=== PATIENT | male | born 1950 | race Caucasian/White ===

== ENCOUNTER 2015-12-27 07:24 | Outpatient (RCR) | payer MEDICARE, OTHER ==
[2015-12-27 11:24] LABS: MEAN CORPUSCULAR HEMOGLOBIN 31.3 PG (26.0-34.0); MEAN CORPUSCULAR HGB CONC 34.6 g/dL (31.0-37.0); MEAN CORPUSCULAR VOLUME 91 FL (80-100); MEAN PLATELET VOLUME 9.2 FL (6.0-9.5); PLATELET COUNT 247 10^3uL (150-450); WHITE BLOOD COUNT 4.79 10^3uL (4.0-11.0)
[2015-12-27 11:44] LABS: BAND NEUTROPHILS % 0 % (0-6); EOSINOPHILS % 4 % (0-4); LYMPHOCYTES # 1.2 #; MONOCYTES # 0.5 #; MONOCYTES % 13 % (3-11); RBC MORPH NORMAL (NORMAL); SEGMENTED NEUTROPHILS % 57 % (51-67); TOTAL CELLS COUNTED 100
[2015-12-27 11:48] LABS: ALBUMIN 4.7 g/dL (3.4-5.0); ANION GAP 16.7 MEQ/L (3-15); CALCULATED IONIZED CALCIUM 4.4 mg/dL (3.8-4.6); MAGNESIUM* 2.5 mg/dL (1.6-2.3); PHOSPHORUS 4.2 mg/dL (2.4-4.9); TOTAL PROTEIN 8.3 g/dL (6.4-8.5)
[2016-01-24 11:47] LABS: MEAN CORPUSCULAR HGB CONC 33.9 g/dL (31.0-37.0); MEAN CORPUSCULAR VOLUME 93 FL (80-100); MEAN PLATELET VOLUME 9.8 FL (6.0-9.5); PLATELET COUNT 174 10^3uL (150-450); WHITE BLOOD COUNT 4.02 10^3uL (4.0-11.0)
[2016-01-24 11:56] LABS: ALBUMIN 4.3 g/dL (3.4-5.0); ANION GAP 17.3 MEQ/L (3-15); MAGNESIUM* 2.4 mg/dL (1.6-2.3); PHOSPHORUS 3.6 mg/dL (2.4-4.9); TOTAL PROTEIN 6.7 g/dL (6.4-8.5)
[2016-01-24 12:31] LABS: MEAN CORPUSCULAR HEMOGLOBIN 31.4 PG (26.0-34.0)
[2016-01-24 13:24] LABS: BAND NEUTROPHILS % 0 % (0-6); EOSINOPHILS % 6 % (0-4); LYMPHOCYTES # 0.8 #; MONOCYTES # 0.3 #; MONOCYTES % 8 % (3-11); RBC MORPH NORMAL (NORMAL); SEGMENTED NEUTROPHILS % 66 % (51-67); TOTAL CELLS COUNTED 100
[2016-02-21 11:12] LABS: MEAN CORPUSCULAR HGB CONC 34.3 g/dL (31.0-37.0); MEAN CORPUSCULAR VOLUME 91 FL (80-100); MEAN PLATELET VOLUME 9.5 FL (6.0-9.5); PLATELET COUNT 211 10^3uL (150-450); WHITE BLOOD COUNT 5.47 10^3uL (4.0-11.0)
[2016-02-21 11:33] LABS: ALBUMIN 4.3 g/dL (3.4-5.0); ANION GAP 17.6 MEQ/L (3-15); CALCULATED IONIZED CALCIUM 4.2 mg/dL (3.8-4.6); MAGNESIUM* 2.3 mg/dL (1.6-2.3); PHOSPHORUS 4.3 mg/dL (2.4-4.9); TOTAL PROTEIN 6.6 g/dL (6.4-8.5)
[2016-02-21 11:55] LABS: MEAN CORPUSCULAR HEMOGLOBIN 31.3 PG (26.0-34.0)
[2016-02-21 12:06] LABS: BAND NEUTROPHILS % 0 % (0-6); EOSINOPHILS % 4 % (0-4); LYMPHOCYTES # 1.4 #; MONOCYTES # 0.5 #; MONOCYTES % 9 % (3-11); SEGMENTED NEUTROPHILS % 61 % (51-67); TOTAL CELLS COUNTED 100
[2016-02-21 12:07] LABS: RBC MORPH NORMAL (NORMAL)
[2016-03-20 10:38] LABS: MEAN CORPUSCULAR HGB CONC 34.7 g/dL (31.0-37.0); MEAN CORPUSCULAR VOLUME 92 FL (80-100); MEAN PLATELET VOLUME 9.2 FL (6.0-9.5); PLATELET COUNT 164 10^3uL (150-450); WHITE BLOOD COUNT 4.38 10^3uL (4.0-11.0)
[2016-03-20 10:47] LABS: MEAN CORPUSCULAR HEMOGLOBIN 31.9 PG (26.0-34.0)
[2016-03-20 11:05] LABS: ALBUMIN 4.6 g/dL (3.4-5.0); ANION GAP 16.1 MEQ/L (3-15); MAGNESIUM* 2.4 mg/dL (1.6-2.3); PHOSPHORUS 4.1 mg/dL (2.4-4.9); TOTAL PROTEIN 7.3 g/dL (6.4-8.5)
[2016-03-20 11:42] LABS: BAND NEUTROPHILS % 0 % (0-6); EOSINOPHILS % 5 % (0-4); LYMPHOCYTES # 0.7 #; MONOCYTES # 0.6 #; MONOCYTES % 15 % (3-11); RBC MORPH NORMAL (NORMAL); SEGMENTED NEUTROPHILS % 64 % (51-67); TOTAL CELLS COUNTED 100
== END 2016-03-26 | disposition home or self-care (01) ==
LOC: LAB 07:24
PROVIDERS: ATTEND Internal Medicine Hematology & Oncology
DX: C61 Malignant neoplasm of prostate (principal); C79.51 Secondary malignant neoplasm of bone
CPT/HCPCS: 36415; 80053; 82565; 83615; 83735; 84100; 84153; 84520; 85007; 85027

== ENCOUNTER 2016-04-17 09:10 | Outpatient (RCR) | payer MEDICARE, OTHER ==
[~2016-04-17 09:10] MED LIST: ALLO300T2 PO; AMIO200T7 PO; AMIT10TA6; AMLO1TAB47; ASPI81TA55 PO; ATOR40TA59 PO; CITA40TA5; EZET10TA5 PO; FURO40TA4 PO; LEVO125T PO; METO-270 PO; MINO10TA; MULT1CAP27 PO; POTA10TA10 PO
[2016-04-17 09:26] LABS: MEAN CORPUSCULAR HEMOGLOBIN 31.9 PG (26.0-34.0); MEAN CORPUSCULAR HGB CONC 34.5 g/dL (31.0-37.0); MEAN CORPUSCULAR VOLUME 93 FL (80-100); MEAN PLATELET VOLUME 9.5 FL (6.0-9.5); PLATELET COUNT 151 10^3uL (150-450); WHITE BLOOD COUNT 3.89 10^3uL (4.0-11.0)
[2016-04-17 09:44] LABS: BAND NEUTROPHILS % 0 % (0-6); EOSINOPHILS % 7 % (0-4); LYMPHOCYTES # 1.2 #; MONOCYTES # 0.2 #; MONOCYTES % 8 % (3-11); SEGMENTED NEUTROPHILS % 53 % (51-67); TOTAL CELLS COUNTED 100
[2016-04-17 09:45] LABS: RBC MORPH NORMAL (NORMAL)
[2016-04-17 09:58] LABS: ALBUMIN 4.2 g/dL (3.4-5.0); ANION GAP 12.5 MEQ/L (3-15); TOTAL PROTEIN 6.8 g/dL (6.4-8.5)
[2016-05-08 08:53] LABS: ALBUMIN 4.5 g/dL (3.4-5.0); ANION GAP 16.7 MEQ/L (3-15); CALCULATED IONIZED CALCIUM 3.9 mg/dL (3.8-4.6); TOTAL PROTEIN 7.4 g/dL (6.4-8.5)
[2016-05-15 08:48] LABS: MEAN CORPUSCULAR HEMOGLOBIN 31.3 PG (26.0-34.0); MEAN CORPUSCULAR HGB CONC 33.5 g/dL (31.0-37.0); MEAN CORPUSCULAR VOLUME 93 FL (80-100); MEAN PLATELET VOLUME 9.6 FL (6.0-9.5); PLATELET COUNT 124 10^3uL (150-450); WHITE BLOOD COUNT 4.76 10^3uL (4.0-11.0)
[2016-05-15 08:54] LABS: BAND NEUTROPHILS % 0 % (0-6); EOSINOPHILS % 1 % (0-4); LYMPHOCYTES # 1.7 #; MONOCYTES # 0.2 #; MONOCYTES % 5 % (3-11); RBC MORPH NORMAL (NORMAL); SEGMENTED NEUTROPHILS % 57 % (51-67); TOTAL CELLS COUNTED 100
[2016-05-15 11:05] LABS: ALBUMIN 4.5 g/dL (3.4-5.0); ANION GAP 13.8 MEQ/L (3-15); CALCULATED IONIZED CALCIUM 4.1 mg/dL (3.8-4.6); MAGNESIUM* 2.1 mg/dL (1.6-2.3); TOTAL PROTEIN 7.3 g/dL (6.4-8.5)
[2016-05-26] MEDS ORDERED: DENO120V SQ (13:28)
[2016-05-26] MEDS ORDERED: DIPH1TAB45 PO (13:28)
[2016-05-26] MEDS ORDERED: VITA1CAP PO (13:28)
[2016-05-26] MEDS ORDERED: MIRT15TA98 PO (13:28)
[2016-05-26] MEDS ORDERED: ESCI20TA39 PO (13:28)
[2016-05-26] MEDS ORDERED: LEUP11.23 IM (13:28)
[2016-05-26] MEDS ORDERED: TAMS0.4C2 PO (13:28)
[2016-06-06 10:55] LABS: MEAN CORPUSCULAR HEMOGLOBIN 30.9 PG (26.0-34.0); MEAN CORPUSCULAR HGB CONC 34.5 g/dL (31.0-37.0); MEAN CORPUSCULAR VOLUME 89 FL (80-100); MEAN PLATELET VOLUME 9.8 FL (6.0-9.5); PLATELET COUNT 125 10^3uL (150-450)
[2016-06-06 10:58] LABS: WHITE BLOOD COUNT 1.19 10^3uL (4.0-11.0)
[2016-06-06 11:03] LABS: BAND NEUTROPHILS % 2 % (0-6); EOSINOPHILS % 0 % (0-4); LYMPHOCYTES # 0.8 #; MONOCYTES # 0.1 #; MONOCYTES % 12 % (3-11); RBC MORPH NORMAL (NORMAL); SEGMENTED NEUTROPHILS % 12 % (51-67); TOTAL CELLS COUNTED 100
[2016-06-09 11:42] LABS: MEAN CORPUSCULAR HEMOGLOBIN 30.8 PG (26.0-34.0); MEAN CORPUSCULAR HGB CONC 33.5 g/dL (31.0-37.0); MEAN CORPUSCULAR VOLUME 92 FL (80-100); MEAN PLATELET VOLUME 9.4 FL (6.0-9.5); PLATELET COUNT 119 10^3uL (150-450); WHITE BLOOD COUNT 11.07 10^3uL (4.0-11.0)
[2016-06-09 12:02] LABS: BAND NEUTROPHILS % 15 % (0-6); EOSINOPHILS % 1 % (0-4); LYMPHOCYTES # 3.1 #; MONOCYTES # 1.7 #; MONOCYTES % 15 % (3-11); SEGMENTED NEUTROPHILS % 38 % (51-67); TOTAL CELLS COUNTED 100
[2016-06-09 12:03] LABS: RBC MORPH NORMAL (NORMAL)
[2016-06-12 11:47] LABS: MEAN CORPUSCULAR HGB CONC 33.2 g/dL (31.0-37.0); MEAN CORPUSCULAR VOLUME 93 FL (80-100); MEAN PLATELET VOLUME 9.9 FL (6.0-9.5); PLATELET COUNT 84 10^3uL (150-450); WHITE BLOOD COUNT 21.52 10^3uL (4.0-11.0)
[2016-06-12 12:06] LABS: BAND NEUTROPHILS % 18 % (0-6); EOSINOPHILS % 0 % (0-4); LYMPHOCYTES # 2.8 #; MONOCYTES # 1.9 #; MONOCYTES % 9 % (3-11); RBC MORPH NORMAL (NORMAL); SEGMENTED NEUTROPHILS % 55 % (51-67); TOTAL CELLS COUNTED 100
[2016-06-19 09:38] LABS: MEAN CORPUSCULAR VOLUME 95 FL (80-100); MEAN PLATELET VOLUME 10.2 FL (6.0-9.5); PLATELET COUNT 111 10^3uL (150-450); WHITE BLOOD COUNT 15.23 10^3uL (4.0-11.0)
[2016-06-19 09:50] LABS: MEAN CORPUSCULAR HEMOGLOBIN 31.3 PG (26.0-34.0)
[2016-06-19 09:53] LABS: BAND NEUTROPHILS % 0 % (0-6); EOSINOPHILS % 0 % (0-4); LYMPHOCYTES # 1.5 #; MONOCYTES # 0.2 #; MONOCYTES % 1 % (3-11); NUCLEATED RED BLOOD CELLS 3; SEGMENTED NEUTROPHILS % 89 % (51-67); TOTAL CELLS COUNTED 100
[2016-06-19 09:54] LABS: RBC MORPH NORMAL (NORMAL)
[2016-06-26 10:18] LABS: MEAN CORPUSCULAR HEMOGLOBIN 30.8 PG (26.0-34.0); MEAN CORPUSCULAR HGB CONC 32.7 g/dL (31.0-37.0); MEAN CORPUSCULAR VOLUME 94 FL (80-100); MEAN PLATELET VOLUME 10.8 FL (6.0-9.5); PLATELET COUNT 100 10^3uL (150-450)
[2016-06-26 10:39] LABS: ALBUMIN 3.9 g/dL (3.4-5.0); ANION GAP 14.8 MEQ/L (3-15); CALCULATED IONIZED CALCIUM 3.7 mg/dL (3.8-4.6); MAGNESIUM* 2.2 mg/dL (1.6-2.3); TOTAL PROTEIN 6.7 g/dL (6.4-8.5)
[2016-06-26 10:48] LABS: SEGMENTED NEUTROPHILS % 52 % (51-67)
[2016-06-26 10:49] LABS: ANISOCYTOSIS SLIGHT; BAND NEUTROPHILS % 15 % (0-6); EOSINOPHILS % 1 % (0-4); LYMPHOCYTES # 2.1 #; MONOCYTES # 0.8 #; MONOCYTES % 9 % (3-11); NUCLEATED RED BLOOD CELLS 1; POLYCHROMASIA SLIGHT; RBC MORPH SEE REFERENCE (NORMAL); TOTAL CELLS COUNTED 100
[2016-07-03 12:08] LABS: MEAN CORPUSCULAR HEMOGLOBIN 31.1 PG (26.0-34.0); MEAN CORPUSCULAR HGB CONC 32.6 g/dL (31.0-37.0); MEAN CORPUSCULAR VOLUME 95 FL (80-100); MEAN PLATELET VOLUME 10.6 FL (6.0-9.5); PLATELET COUNT 81 10^3uL (150-450); WHITE BLOOD COUNT 11.62 10^3uL (4.0-11.0)
[2016-07-03 12:33] LABS: BAND NEUTROPHILS % 5 % (0-6); LYMPHOCYTES # 0.8 #
[2016-07-03 12:34] LABS: EOSINOPHILS % 0 % (0-4); MONOCYTES # 0.2 #; MONOCYTES % 2 % (3-11); RBC MORPH NORMAL (NORMAL); SEGMENTED NEUTROPHILS % 86 % (51-67); TOTAL CELLS COUNTED 100
[2016-07-10 09:50] LABS: MEAN CORPUSCULAR HEMOGLOBIN 31.1 PG (26.0-34.0); MEAN CORPUSCULAR HGB CONC 31.9 g/dL (31.0-37.0); MEAN PLATELET VOLUME 9.6 FL (6.0-9.5); PLATELET COUNT 156 10^3uL (150-450); WHITE BLOOD COUNT 10.84 10^3uL (4.0-11.0)
[2016-07-10 10:26] LABS: MEAN CORPUSCULAR VOLUME 98 FL (80-100)
[2016-07-10 10:46] LABS: BAND NEUTROPHILS % 10 % (0-6); EOSINOPHILS % 0 % (0-4); LYMPHOCYTES # 1.1 #; MONOCYTES # 0.5 #; MONOCYTES % 5 % (3-11); NUCLEATED RED BLOOD CELLS 4; SEGMENTED NEUTROPHILS % 72 % (51-67); TOTAL CELLS COUNTED 100
[2016-07-10 10:47] LABS: ANISOCYTOSIS MODERATE; POLYCHROMASIA SLIGHT; RBC MORPH SEE REFERENCE (NORMAL)
[2016-07-10 15:36] LABS: IRON 108 ug/dL (65-175); UNBOUND IRON CONTENT 206 ug/dl (126-382)
== END 2016-07-16 | disposition home or self-care (01) ==
LOC: LAB 09:10
PROVIDERS: ATTEND Internal Medicine Hematology & Oncology
DX: C61 Malignant neoplasm of prostate (principal); C79.51 Secondary malignant neoplasm of bone
CPT/HCPCS: 36415; 80053; 82565; 82728; 83540; 83550; 83615; 83735; 84100; 84153; 85007; 85025; 85027

== ENCOUNTER → 2016-04-17 | Outpatient (CLI) | payer MEDICARE, OTHER | LOC: LAB 09:28 | PROVIDERS: ATTEND Family Medicine | DX: E03.9 Hypothyroidism, unspecified (principal) | CPT/HCPCS: 36415; 84439; 84443 ==

== ENCOUNTER → 2016-05-19 | Outpatient (CLI) | payer MEDICARE, OTHER ==
[~2016-05-19] MED LIST changes: +AMIO200T7; -AMIO200T7 PO; +ASPI81TA55; -ASPI81TA55 PO; +ATOR40TA59; -ATOR40TA59 PO; +FURO40TA4; -FURO40TA4 PO; +LEVO125T; -LEVO125T PO; +MULT1CAP27; -MULT1CAP27 PO
--- NOTE | 2016-05-19 14:30 | Diagnostic Imaging Report ---
TECHNIQUE: Multiplanar and multisequence MRI of the cervical spine was performed with and without contrast. INDICATION: History of prostate carcinoma. Neck pain. EXAMINATION: MRI of cervical spine with and without contrast, 05/19/2016. COMPARISONS: None; however, correlation made to a fairly recent bone scan dated 09/22/2015. FINDINGS: There are multifocal areas of abnormal signal intensity throughout the entire visualized thoracic and cervical spine. This would be consistent with diffuse metastatic disease. No extension of osseous structures into the central canal appreciated with no significant compression deformities seen. Alignment of the spine is fairly well preserved. The cervicomedullary junction is normal in appearance. The visualized aspects of the cord demonstrate normal signal intensity. At C2-C3, there is a left paracentral broad-based spur disc complex containing an annular tear. Findings flatten the ventral thecal sac. Bilateral facet hypertrophy noted, right greater than left. Left-sided neuroforaminal stenosis is moderate in nature. C3-C4: There is a broad-based bulging disc flattening the ventral thecal sac with bilateral facet hypertrophy. Bilateral neuroforaminal narrowing is also seen. There is mild central narrowing. At C4-C5, there is disc desiccation. There is a broad-based bulging disc with bilateral facet hypertrophy. There is bilateral neuroforaminal stenosis as well. There is mild central stenosis. C5-C6: Intervertebral disc space narrowing and disc desiccation with a broad-based bulging disc noted. Anterior spurring is also seen. Bilateral facet hypertrophy noted. Findings cause moderate central stenosis. There is bilateral neuroforaminal narrowing. C6-C7: There is intervertebral disc space narrowing, disc desiccation and a broad-based bulging disc with bilateral facet hypertrophy. The central canal demonstrates mild to moderate narrowing. Bilateral neuroforaminal narrowing is also seen. The prevertebral soft tissues demonstrate no evidence for acute abnormality. Postcontrast imaging shows heterogeneous enhancement seen throughout the osseous structures consistent with a diffuse areas of metastatic disease. No abnormal enhancement seen within the cord itself. Heterogeneity and areas of hyperintensity noted within the visualized right upper ribs, possibly due to metastatic disease in the proximal ribs. There is a nonspecific hyperintensity within the posterior soft tissues of the left paraspinal region in the mid cervical spine level. This is approximately a centimeter in transverse dimension and nonspecific. It appears to extend through the skin and could be a focal skin lesion. Clinical evaluation with physical examination recommended. A similar deeper smaller lesion noted more cranially and posteriorly, perhaps a prominent lymph node. This is also on the left and measures 6.8 mm in greatest dimension. IMPRESSION: 1. Diffuse heterogeneity of the all visualized osseous structures consistent with diffuse metastasis throughout the cervical and visualized thoracic spine. Involvement of the right proximal rib suspected as well. If clinically warranted, repeat bone scan could further characterize. 2. Nonspecific hyperintensities noted on postcontrast imaging in the posterior soft tissues of the neck described above, see above discussion. Dictated by: Dictated on workstation # [id number]
--- NOTE | 2016-05-19 14:36 | Diagnostic Imaging Report ---
TECHNIQUE: Multiplanar, multisequence MR imaging of the brain was performed with and without contrast. INDICATION: Neck pain, history of prostate cancer. EXAMINATION: MRI brain with and without contrast, 05/19/2016. COMPARISON: None. Correlation made to CT of the brain dated 07/31/2011. FINDINGS: There is no evidence for restricted diffusion. No mass, mass effect or midline shift is appreciated. No acute hemorrhage or infarcts visualized. There is no hydrocephalus. There are scattered hyperintensities in the deep white matter in periventricular distribution on FLAIR imaging, most likely on the basis of chronic small vessel ischemic disease. The postcontrast images demonstrate no evidence for abnormally enhancing masses or lesions within the intraparenchymal aspects of the brain. There are a few nonspecific hypointensities within the region of the right basal ganglia, likely old lacunar infarcts or small Virchow-German spaces. The sinuses demonstrate no evidence for acute disease. Mild mucosal thickening seen throughout the visualized sinuses. The osseous structures do demonstrate marked heterogeneity throughout the calvarium with multifocal areas of both T1 and T2 hypointensity. This would be consistent with the known history of metastatic disease to the bones. IMPRESSION: 1. Chronic changes within the brain with no acute intracranial process appreciated. 2. Diffuse metastatic disease suspected throughout the calvarium. Dictated by: Dictated on workstation # [id number]
== END ==
LOC: RAD 11:08
PROVIDERS: ATTEND Internal Medicine Hematology & Oncology
DX: M54.2 Cervicalgia (principal); C61 Malignant neoplasm of prostate; C79.51 Secondary malignant neoplasm of bone
CPT/HCPCS: 70553; 72156; A9579

== ENCOUNTER 2016-05-29 07:42 | Day surgery (SDC) | payer MEDICARE, OTHER ==
[~2016-05-29] VITALS: Ht 182.9 cm; Wt 96.8 kg
[~2016-05-29 07:42] MED LIST changes: +ACETAMINOPHEN 500 MG TAB (TYLENOL) PO SCH; -AMIO200T7; +AMIO200T7 PO; -ASPI81TA55; +ASPI81TA55 PO; -ATOR40TA59; +ATOR40TA59 PO; +BUPIVACAINE/EPINEPHRINE 0.25%-1:200,000 (MARCAINE) 30 ML VIAL INJ ONE; +DENO120V SQ; +DIPH1TAB45 PO; +ESCI20TA39 PO; -FURO40TA4; +FURO40TA4 PO; +HEPARIN 5000 UNIT/0.5 ML SYRINGE ONE; +LACTATED RINGERS 1,000 ML IV SCH; +LEUP11.23 IM; -LEVO125T; +LEVO125T PO; +LIDOCAINE/EPINEPHRINE 1% 1:100,000 (XYLOCAINE) 30 ML VIAL INJ ONE; +MIRT15TA98 PO; -MULT1CAP27; +MULT1CAP27 PO; +SODIUM CHLORIDE FLUSH 3 ML SYR IV PRN; +SODIUM CHLORIDE FLUSH 30 ML ONE; +TAMS0.4C2 PO; +VITA1CAP PO; +ceFAZolin 2,000 MG in WATER (STERILE) FOR INJECTION 20 ML IV SCH; +oxyCODONE IMMEDIATE RELEASE 5 MG (OXYIR) TAB PO SCH
--- OUTSIDE RECORDS SUMMARY | 2016-05-29 07:47 | XMS REPORT | Continuity of Care Document ---
Author Author [facility] Address Unknown Phone Unavailable Care Team Providers Care Rides Supervisor Name Role Phone Jg Chadwick MD PCP [phone] Insurance Providers Payer Name Policy Number Subscriber Name Relationship Medicare A And B [id number] Ethan Sullivan 16 Self / Same As Patient Other1 [id number] Ethan Sullivan Self / Same As Patient Advance Directives Directive Response Recorded Date/Time Advanced Directives No 09/19/15 8:00pm Chief Complaint and Reason for Visit Chief Complaint Laceration Reason for Visit Laceration Problems Active Problems Medical Problem Onset Date Status Chest pain 10/28/2012 Resolved Laceration Unknown Acute Malignant neoplasm Unknown Acute Medications Current Home Medications Medication Dose Units Route Directions Days/Qty Instructions Start Date Amiodarone Hcl 200 Mg 10/28/12 Citalopram Hydrobromide (Celexa) 40 Mg 10/28/12 Aspirin 81 Mg 10/28/12 Levothyroxine Sodium 125 Mcg 10/28/12 Furosemide 40 Mg 10/28/12 Atorvastatin Calcium 40 Mg 10/28/12 Multivitamin 1 Each 10/28/12 Allopurinol 300 Mg 300 Mg ORAL Daily 09/17/14 Metoprolol Succinate 25 Mg 25 Mg ORAL Twice A Day 09/17/14 Ezetimibe 10 Mg 5 Mg ORAL Daily 09/17/14 Potassium Chloride 10 Meq 10 Meq ORAL Daily 09/17/14 Past Home Medications Medication Directions Ordered Status Amitriptyline Hcl 10 Mg Tablet, 10/28/12 Discontinued Amlodipine Bes/Olmesartan Med 1 Each Tablet, 10/28/12 Discontinued Minoxidil 10 Mg Tablet, 10/28/12 Discontinued Social History Query Response Start Date Stop Date Smoking Status Never smoker Hospital Discharge Instructions No hospital discharge instructions. Plan of Care Discharge Date 09/19/15 8:46pm Disposition 01 HOME OR SELF-CARE Condition at Discharge Stable Instructions/Education Provided Suture Care (ED) Laceration (ED) Prescriptions See Medication Section Referrals Jg Chadwick MD - Additional Instructions/Education remove sutures in 7 days by ED or PCP Some of your test results may not be complete prior to your leaving the Emergency Department. The Emergency Department is not authorized to give test results over the phone. Please contact the doctor's office listed in this packet of information for your final results. Follow up with your primary care physician or return to the Emergency Department for worsening or worrisome symptoms. * Emergency Department phone number: [phone], x [phone]* MEDICAL RECORD If you need copies of your X-rays, call [phone]. If you need copies of your medical record, including lab results, a signed authorization for release of records will be required. A telephone call for release of Health Information is not allowed. BILLING Billing can sometimes be confusing and frustrating. To help avoid confusion in the future, please take a moment to acquaint yourself with the billing parties for services. SERVICE BILLING LIBERTARIAN Emergency Room Services [facility] Physician Services [facility] X-rays [facility] Patients will receive bills for services from the appropriate provider. If you have any questions about your [facility] bill, our staff will be happy to assist you. Please call [phone], and ask for the billing department. THANK YOU for choosing [facility] as your emergency care provider! Care Plan and Goals ~~Discharge Care Plan~~ Problem: Laceration repaired Goal: Wound is closed with edges lined up, and will heal without redness, drainage or signs of infection. Instructions: Keep wound clean and dry. Apply antibiotic ointment as directed. Follow physician discharge instructions. Keep wound covered if working in an unclean environment. Wear gloves if working with food in a work environment. Functional Status No functional status results. Allergies, Adverse Reactions, Alerts No known allergies. Immunizations No immunization records. Vital Signs Acute Vital Signs Vital Response Date/Time Temperature (Fahrenheit) 95.8 09/19/2015 8:45pm Pulse 67 bpm 09/19/2015 8:45pm Respirations 16 09/19/2015 8:45pm Height 6 ft 0 in Weight 207 lb Body Mass Index 28.0 kg/m^2 Results Laboratory Results Test Name Result Units Flags Reference Collection Date/Time Result Date/ Time Comments Free Testosterone 0.10 ng/dL L 09/06/2015 10:37am 09/10/2015 3:15pm Reference Range: 3.47-13.0 ADDITIONAL INFORMATION Testing performed by [facility]. Total Testosterone 7.9 ng/dL L 240-950 09/06/2015 10:37am 09/09/2015 7: 49pm ADDITIONAL INFORMATION Testing performed by Liquid Chromatography-Tandem Mass Spectrometry (LC-MS/MS). Test Performed by: [facility] [place] [address] Section Weaver: Nicolás Gatica II, M.D., Ph.D. Pending Laboratory Results Test Name Collection Date/Time Procedures Procedure Status Date Provider(s) ROUTINE VENIPUNCTURE Completed 09/06/15 ASSAY OF PSA TOTAL Completed 09/06/15 ASSAY OF FREE TESTOSTERONE Completed 09/06/15 ASSAY OF TOTAL TESTOSTERONE Completed 09/06/15 Encounters Encounter Location Arrival/Admit Date Discharge/Depart Date Attending Provider Registered Emergency Room [facility] 09/19/15 8:00pm LOUIE WAY MD Registered Clinic [facility] 09/14/15 3:18pm Ludwin Mendoza Registered Clinic [facility] 09/06/15 10:34am PANCHO MORA MD Recent Diagnosis
[2016-05-29 07:50] VITALS: BP 129/81
[2016-05-29 08:20] LABS: MEAN CORPUSCULAR HGB CONC 34.1 g/dL (31.0-37.0); MEAN CORPUSCULAR VOLUME 91 FL (80-100); MEAN PLATELET VOLUME 9.7 FL (6.0-9.5); PLATELET COUNT 117 10^3uL (150-450); WHITE BLOOD COUNT 8.28 10^3uL (4.0-11.0)
[2016-05-29 08:26] LABS: BAND NEUTROPHILS % 8 % (0-6); EOSINOPHILS % 0 % (0-4); LYMPHOCYTES # 1.1 #; MONOCYTES # 0.6 #; MONOCYTES % 7 % (3-11); RBC MORPH NORMAL (NORMAL); SEGMENTED NEUTROPHILS % 72 % (51-67); TOTAL CELLS COUNTED 100
[2016-05-29] MEDS ORDERED: MIDAZOLAM 2 MG/2 ML (VERSED) VIAL ONE (09:01)
[2016-05-29] MEDS ORDERED: ALFENTANIL 500 MCG/ML (ALFENTA) 5 ML AMP IV ONE (09:01)
[2016-05-29] MEDS ORDERED: ONDANSETRON 2 MG/ML (Z0FRAN) 2 ML VIAL ONE (09:23)
[2016-05-29] MEDS ORDERED: DEXAMETHASONE 10 MG/ML (DECADRON) VIAL ONE (09:23)
[2016-05-29] MEDS ORDERED: diphenhydrAMINE 50 MG/ML INJ (BENADRYL) ONE (09:23)
[2016-05-29 10:29] VITALS: BP 149/87
[2016-05-29] MEDS ORDERED: ONDANSETRON 2 MG/ML (Z0FRAN) 2 ML VIAL IV PRN (10:45)
[2016-05-29 10:53] VITALS: BP 188/67
--- NOTE | 2016-05-29 12:46 | OPERATIVE REPORT ---
DATE OF OPERATION: 05/29/16 PRE-OPERATIVE DIAGNOSIS: Prostate cancer metastatic to bone POST-OPERATIVE DIAGNOSIS: Prostate cancer metastatic to bone OPERATIVE PROCEDURE: PowerPort insertion, right internal jugular vein under ultrasound and fluoroscopic guidance. SURGEON: Mik Unger MD MANAGER MAC: Alexandra Gonzales RN, CSFA ANESTHESIA: IV conscious sedation plus local anesthetic of 0.5% lidocaine with epinephrine, plus 0.125% Marcaine with epinephrine. POSITION: Trendelenburg PREP: Chlorhexidine ESTIMATED BLOOD LOSS: 8 mL FINDINGS: Prior to the procedure the venous anatomy of the neck was interrogated with ultrasound and satisfactory sized internal jugular veins were noted bilaterally. OPERATIVE NOTE: Following satisfactory induction of analgesia the patient was prepped and draped in sterile fashion. Local anesthetic was infiltrated and a skin marilia made in the anterolateral lateral mid neck. Under real-time ultrasound guidance the internal jugular vein was accessed through this skin mrailia and guidewire advanced. Initially difficulty was encountered with the guidewire advancing beyond the junction with the subclavian vein. However under fluoroscopic guidance, and with additional manipulation, the guidewire advanced into the superior vena cava satisfactorily. Local anesthetic was infiltrated on the right anterior chest wall and a skin crease incision made. This was deepened to the pectoral fascia. Using blunt dissection a subcutaneous pocket was created for the port caudal to the incision. Additional local anesthetic was infiltrated along the planned tunnel site for the catheter. The catheter was then tunneled subcutaneously from the port site in the chest wall to the vein entry site in the neck. The opposite end of the catheter was attached to the port, which was then placed in the pocket. Under fluoroscopic guidance the catheter was placed on the chest, and cut to the appropriate length on bevel. Next the dilator peel-away sheath assembly was advanced over the guidewire under fluoroscopic guidance. The dilator and guidewire were removed. The catheter was then advanced through the peel-away sheath to the junction of the superior vena cava and right atrium under fluoroscopic guidance. The peel-away sheath was removed. Aspiration through the port revealed excellent blood return and the port flushed readily with saline. The port was anchored to the pectoral fascia on either side with 2-0 Prolene suture in the pocket. Final inspection with fluoroscopy revealed good position and course of the catheter. Closure was accomplished as follows. The subcutaneous tissues were approximated with simple interrupted 3-0 Vicryl suture. The skin incisions were closed with continuous subcuticular suture of 4-0 Monocryl and Dermabond dressing. As the patient required chemotherapy today, the port was reaccessed using a right angle butterfly Cesar needle. Aspiration of blood confirmed position, and the port was flushed with heparinized saline 100 units/mL. Tegaderm dressing was applied over the assembly. The patient tolerated the procedure well and transferred to recovery in stable condition. Post procedure chest x-ray pending. Final instrument, needle and sponge counts correct.
--- NOTE | 2016-05-29 13:01 | Diagnostic Imaging Report ---
INDICATION: Metastatic prostate cancer, need for central venous access. DISCUSSION: A single upright view of the chest was obtained with comparison made to 10/28/2012. The right chest wall [id number] with its tip in the SVC is in good position. Low lung volumes. No pneumothorax. Old ununited left rib fractures are noted. Multiple sclerotic foci are noted throughout the visualized osseous structures, consistent with metastatic prostate cancer. The median sternotomy is stable. Stable normal heart size. Patchy opacities within the lungs are likely due to central atelectasis secondary to poor inspiratory effort. No pleural fluid. IMPRESSION: 1. Right chest wall [id number]. No pneumothorax. 2. Osseous metastatic disease. Dictated by: Dictated on workstation # [id number]
== END 2016-05-29 10:55 | disposition home or self-care (01) ==
LOC: ASC 07:42
PROVIDERS: ATTEND Surgery
PROC: 0JH63XZ Insertion of Tunneled Vascular Access Device into Chest Subcutaneous Tissue and Fascia, Percutaneous Approach (ICD-10-PCS; principal; 2016-05-29)
DX: C61 Malignant neoplasm of prostate (principal); C79.51 Secondary malignant neoplasm of bone
CPT/HCPCS: 36415; 36561; 77001; 84132; 85007; 85027; A9270; C1788; J1100; J1200; J1644; J2250; J7120

== ENCOUNTER → 2016-07-17 | Outpatient (CLI) | payer MEDICARE, OTHER ==
[~2016-07-17] MED LIST changes: -ACETAMINOPHEN 500 MG TAB (TYLENOL) PO SCH; -BUPIVACAINE/EPINEPHRINE 0.25%-1:200,000 (MARCAINE) 30 ML VIAL INJ ONE; -HEPARIN 5000 UNIT/0.5 ML SYRINGE ONE; -LACTATED RINGERS 1,000 ML IV SCH; -LIDOCAINE/EPINEPHRINE 1% 1:100,000 (XYLOCAINE) 30 ML VIAL INJ ONE; -SODIUM CHLORIDE FLUSH 3 ML SYR IV PRN; -SODIUM CHLORIDE FLUSH 30 ML ONE; -ceFAZolin 2,000 MG in WATER (STERILE) FOR INJECTION 20 ML IV SCH; -oxyCODONE IMMEDIATE RELEASE 5 MG (OXYIR) TAB PO SCH
[2016-07-17 09:19] LABS: MEAN CORPUSCULAR VOLUME 96 FL (80-100); MEAN PLATELET VOLUME 11.2 FL (6.0-9.5); PLATELET COUNT 92 10^3uL (150-450); WHITE BLOOD COUNT 9.04 10^3uL (4.0-11.0)
[2016-07-17 09:22] LABS: MEAN CORPUSCULAR HEMOGLOBIN 31.7 PG (26.0-34.0)
[2016-07-17 10:49] LABS: ALBUMIN 4.2 g/dL (3.4-5.0); ANION GAP 14.2 MEQ/L (3-15); CALCULATED IONIZED CALCIUM 3.6 mg/dL (3.8-4.6); MAGNESIUM* 2.6 mg/dL (1.6-2.3); TOTAL PROTEIN 6.7 g/dL (6.4-8.5)
[2016-07-17 12:34] LABS: BAND NEUTROPHILS % 4 % (0-6); EOSINOPHILS % 1 % (0-4); LYMPHOCYTES # 1.7 #; MONOCYTES # 1.2 #; MONOCYTES % 13 % (3-11); SEGMENTED NEUTROPHILS % 58 % (51-67); SMUDGE CELLS 3+; TOTAL CELLS COUNTED 100
[2016-07-17 12:35] LABS: ANISOCYTOSIS MODERATE; POIKILOCYTOSIS SLIGHT; RBC MORPH SEE REFERENCE (NORMAL)
== END ==
LOC: EDSTATUS 04:33 → LAB 08:30
PROVIDERS: ATTEND Internal Medicine Hematology & Oncology
DX: C61 Malignant neoplasm of prostate (principal); C79.51 Secondary malignant neoplasm of bone
CPT/HCPCS: 36415; 80053; 83615; 83735; 84100; 84153; 85007; 85027